=== PATIENT | male | born 1965 | race Caucasian/White ===

== ENCOUNTER 2020-08-09 08:15 | Outpatient (CLI) | payer OTHER | END 2020-08-09 08:16 | disposition home or self-care (01) | LOC: NUCLEAR 08:15 → EDBD 08:15 → NUCLEAR 08:16 | PROVIDERS: ATTEND Internal Medicine Cardiovascular Disease | DX: I20.1 Angina pectoris with documented spasm (principal) | CPT/HCPCS: 78452; 93017; A9500 ==

== ENCOUNTER → 2021-04-06 | Emergency (ER) | payer OTHER ==
[~2021-04-06] VITALS: Ht 177.8 cm; Wt 81.6 kg
== END | disposition home or self-care (01) ==
LOC: ER 17:20
DX: S83.92XA Sprain of unspecified site of left knee, initial encounter (principal); X58.XXXA Exposure to other specified factors, initial encounter; Y93.73 Activity, racquet and hand sports

== ENCOUNTER 2021-04-16 11:44 | Outpatient (CLI) | payer OTHER | END 2021-04-16 11:45 | disposition home or self-care (01) | LOC: MRI 11:44 | PROVIDERS: ATTEND Orthopaedic Surgery | DX: M23.92 Unspecified internal derangement of left knee (principal) | CPT/HCPCS: 73718 ==